=== PATIENT | female | born 1955 | race Caucasian/White ===

== ENCOUNTER 2016-11-02 02:23 | Inpatient (IN) | payer OTHER ==
[2016-11-02] VITALS (9 sets, daily range): BP systolic 95–142; BP diastolic 45–90
[~2016-11-02] VITALS: Ht 175.3 cm; Wt 47.6 kg
[2016-11-02 03:04] LABS: MEAN CORPUSCULAR HEMOGLOBIN 30.2 PG (27.0-31.0); MEAN CORPUSCULAR HGB CONC 33.6 G/DL (32.0-36.0); MEAN CORPUSCULAR VOLUME 90 FL (80-99); MEAN PLATELET VOLUME 6.1 FL (6.5-10.1); PLATELET COUNT 448 K/UL (150-450); RED BLOOD COUNT 4.48 M/UL (4.20-5.40); RED CELL DISTRIBUTION WIDTH 11.5 % (11.6-14.8); WHITE BLOOD COUNT 20.2 K/UL (4.8-10.8)
[2016-11-02 03:07] LABS: TROPONIN I < 0.30 ng/mL (<=0.30)
[2016-11-02 03:11] LABS: ALANINE AMINOTRANSFERASE 16 U/L (3-33); ALBUMIN/GLOBULIN RATIO 0.9 (1.0-2.7); ANION GAP 15 (5-15); ASPARTATE AMINO TRANSFERASE 21 U/L (5-40); CALCIUM 8.3 mg/dL (8.6-10.2); CARBON DIOXIDE 26 mEQ/L (20-30); CHLORIDE 99 mEQ/L (98-107); CREATININE 0.5 mg/dL (0.5-0.9); GLOMERULAR FILTRATION RATE > 60 mL/min (>60); HEMOLYSIS 1; POTASSIUM 3.4 mEQ/L (3.4-4.9); SODIUM 140 mEQ/L (135-145); TOTAL PROTEIN 6.3 g/dL (6.6-8.7)
[2016-11-02 03:21] LABS: CKMB 2.1 ng/mL (< 3.8)
[2016-11-02] MEDS ORDERED: Unasyn 3gm Inj ONE (03:26)
[2016-11-02] MEDS ORDERED: Ampicillin/Sulbactam Sod 3 GM in NS 110 ML IVPB ONE (03:30)
--- NOTE | 2016-11-02 04:46 | Emergency Room Report ---
History of Present Illness General Chief Complaint: Dyspnea/Respdistress Source: Patient Present Illness HPI Patient is a 61-year-old female brought in by EMS after increased difficulty breathing. Patient had gradual onset of symptoms. Patient had prior history of interstitial lung disease. Patient had been having increased work of breathing. Patient reported having prior history of similar symptoms. Patient does not use oxygen at home. She reported having some nonproductive cough. She had recently been on steroids approximately one month ago had been using steroids for several weeks. Allergies: Coded Allergies: No Known Allergies (Unverified , 11/02/16) Patient History Past Medical History: see triage record, other - interstitial lung disease. Reviewed Nursing Documentation: PMH: Agreed, PSxH: Agreed Nursing Documentation-PMH Hx COPD: Yes - INTERSTITIAL LUNG DISEASE Review of Systems All Other Systems: negative except mentioned in HPI Physical Exam Vital Signs Date Time Temp Pulse Resp B/P Pulse Ox O2 Delivery O2 Flow Rate FiO2 11/02/16 02:29 98.4 129 18 137/61 80 Room Air 11/02/16 02:45 4.0 Sp02 EP Interpretation: reviewed, normal General Appearance: normal inspection, well appearing, no apparent distress, alert, GCS 15, thin, Chronically Ill Head: atraumatic ENT: normal ENT inspection, hearing grossly normal, normal voice Neck: normal inspection, full range of motion, supple, no bony tend Respiratory: normal inspection, lungs clear, normal breath sounds, no respiratory distress, no retraction, no wheezing Cardiovascular #1: regular rate, rhythm, no edema Gastrointestinal: normal inspection, normal bowel sounds, non tender, soft, no guarding, no hernia Genitourinary: no CVA tenderness Musculoskeletal: normal inspection, back normal, normal range of motion Neurologic: normal inspection, alert, oriented x3, responsive, hoof trimmer III-XII nml as tested, speech normal Psychiatric: normal inspection, judgement/insight normal, mood/affect normal Skin: normal inspection, normal color, no rash Medical Decision Making Diagnostic Impression: Primary Impression: Respiratory distress Additional Impressions: Hypoxia Interstitial lung disease Leukocytosis ER Course Patient presented for shortness of breath. Differential diagnosis included but was not limited to bronchitis, pneumonia, pulmonary embolism, pericarditis, asthma, foreign body.Because of complexity of patient's case laboratory testing and imaging studies were ordered. The left her testing was notable for elevated white blood count. EKG interpreted by me showed sinus tachycardia with a rate of [address] or T wave changes. Rhythm strip showed a normal sinus rhythm with a rate of 104 without PVCs or ectopy. Chest x-ray one view interpreted by me showed scarring to both lungs with possible superimposed infiltrate. The patient was given IV antibiotics empirically. Dr. Nixon Keith was contacted for inpatient management. The patient started on supplemental oxygen. Last Vital Signs Date Time Temp Pulse Resp B/P Pulse Ox O2 Delivery O2 Flow Rate FiO2 11/02/16 03:48 98.2 98 28 103/52 95 Nasal Cannula 4.0 Status: unchanged Disposition: ADMITTED INPATIENT Condition: Serious Referrals: [facility],REFERRING (PCP) Titi Dover Nov 02, 2016 04:46
[2016-11-02] MEDS ORDERED: NKM (05:58)
--- NOTE | 2016-11-02 08:36 | Diagnostic Imaging Report ---
Indications: Shortness of breath Technique: Portable AP chest Findings: Comparison: None Interstitial markings mildly increased throughout both lungs. Linear suture lines the lateral aspect of the right upper and lower lobes. Both costophrenic angles mildly blunted. Heart size within normal limits. Central pulmonary vasculature prominent. Peripheral pulmonary vasculature within normal limits. Bones and extra pulmonary soft tissues unremarkable. Both costophrenic angles are blunted. IMPRESSION: Evidence of previous right lung surgery Diffuse bilateral interstitial disease, nonspecific, acuity indeterminate. Suggestion of small bibasal pleural effusions versus thickening, nonspecific Central pulmonary artery enlargement suggests an element of pulmonary arterial hypertension.
[2016-11-02 08:41] LABS: BAND NEUTROPHILS % (MANUAL) 1 % (0-8); BASOPHILS % (MANUAL) 0 % (0-2); EOSINOPHILS % (MANUAL) 1 % (0-3); LYMPHOCYTES % (MANUAL) 3 % (20-45); NEUTROPHILS % (MANUAL) 88 % (45-75); PLATELET ESTIMATE ADEQUATE; PLATELET MORPHOLOGY NORMAL; TOTAL CELLS COUNTED 100
--- NOTE | 2016-11-02 09:28 | History and Physical Report ---
DATE OF ADMISSION: 11/02/2016 CHIEF COMPLAINT AND REASON FOR HOSPITALIZATION: The patient admitted for cough and shortness of breath. HISTORY OF PRESENT ILLNESS: The patient had about 18 month history of cough and shortness of breath and diagnostic interstitial lung disease. She had a VATS procedure at [facility], was hospitalized there in August. She was given a prednisone before, but this was weaned off. She initially had a response, but her physicians apparently did not want to keep her on prednisone. She was also given gabapentin and that was also discontinued. She states inhalers did not help her. She presented with hypoxemia, cough and weakness. PAST SURGICAL HISTORY: VATS procedure on the right lung. ALLERGIES: None known. HABITS: She is a nondrinker and nonsmoker. No use of illicit drugs. SOCIAL HISTORY: She is . She works caring for elderly patients. Infectious exposure, no history of TB or valley fever, or exposure to the above. SYSTEM REVIEW: HEENT: Head eyes, ears, nose, and throat, vision and hearing is good. ENDOCRINE: No known diabetes or thyroid disease. PULMONARY: No asthma or TB. As above interstitial lung disease. CARDIAC: No angina, [place], or palpitations. GASTROINTESTINAL: No GI bleeding or ulcers. GENITOURINARY: No dysuria, hematuria, or kidney stones. She is post menopausal. NEUROLOGIC: No CVA, syncope or seizures. She has had significant weight loss over the two last years. PHYSICAL EXAMINATION: GENERAL: The patient is alert lady, thin, in no acute distress. BMI is 15.5. VITAL SIGNS: Temperature 98.2 degrees, respirations 24, blood pressure 105/58, pulse oximetry is 97% on four liters. HEENT: Sclerae nonicteric. Ocular motions intact in all directions. Oral mucosa moist. NECK: No adenopathy or thyroid enlargement. LUNGS: Few crackles at the bases. No wheezing. HEART: Regular rhythm. No murmur. ABDOMEN: Soft. No organomegaly or masses. EXTREMITIES: No edema cyanosis or clubbing. Note that she had a pulse of 129 on arrival and a pulse oximetry of 80% on arrival to the emergency room. LABORATORY AND DIAGNOSTIC DATA: White count is 20.2 and hemoglobin is 13.5. Electrolytes, potassium is 3.4 and glucose 138. IMPRESSION: 1. Interstitial lung disease with worsening hypoxemia and cough. 2. Weight loss significant. 3. Leukocytosis. PLAN: The patient will be treated for pulmonary infection with antibiotics. We will get pulmonary consultation due to severe hypoxemia and a question of whether nonsteroids should be continued. We will watch her closely in view of his significant hypoxemia. Thank you. Nixon Keith M.D. DR: Luna JOB#: [id number] CC:
[2016-11-02] MEDS ORDERED: guaiFENesin 100mg/5ml Liq ud ORAL PRN (09:30)
[2016-11-02] MEDS ORDERED: Milk of Magnesia 30ml Ud ORAL PRN (09:30)
[2016-11-02] MEDS: Benzonatate 100mg Perles ORAL SCH ×3 (09:48→18:08)
[2016-11-02] MEDS: Heparin 5000 units/ml inj SUBQ SCH ×2 (09:50→22:10)
[2016-11-02] MEDS ORDERED: Azithromycin 250mg tab ORAL ONE (10:00)
[2016-11-02] MEDS ORDERED: Solu-MEDROL 125mg Inj IVP ONE (10:00)
[2016-11-02] MEDS: cefTRIAXone 1 GM in D5W 55 ML IVPB SCH (11:04)
--- NOTE | 2016-11-02 13:08 | Consultation ---
Consult Note Assessment/Plan This 61 yo female was treated for interstitial lung disease dx w VATS last yr. Better w steroids but she did not follow up and stopped rx and got worse. Below are path report and pulmonary consultants opinion. The differential diagnosis includes chronic hypersensitivity pneumonitis and aspiration; connective tissue disease-associated interstitial lung disease cannot be entirely excluded based on pathologic findings. Some sections also demonstrate lipoid material, raising the possibility of exogenous lipoid pneumonia constellation of history/exposure, serologies, imaging and preliminary path findings suggestive of chronic hypersensitivity pneumonitis, likely to pigeon antigen - resume prednisone 40mg PO and bactrim ppx, please provide six month supply while pt figures out insurance issues to arrange followup with us She has rales but no clubbing. Rec abx (high WBC may be due to infection) steroids, PPI Bactrim DC when her condition improves Needs close f/u. MICHEL BEYER Nov 02, 2016 13:08
[2016-11-02] MEDS: Bactrim DS (160mg/800mg) tab ORAL SCH ×2 (13:35→22:03)
[2016-11-02] MEDS: Solu-MEDROL 40mg Inj IVP SCH ×2 (13:36→22:03)
[2016-11-02] MEDS: NovoLOG Insulin Flexpen SUBQ SCH ×2 (16:32→22:09)
[2016-11-03] VITALS: BP 135/69
[2016-11-03 02:57] LABS: APPEARANCE,URINE CLEAR; KETONES,URINE NEGATIVE (NEGATIVE); LEUKOCYTE ESTERASE ,URINE 1+ (NEGATIVE); NITRITE,URINE NEGATIVE (NEGATIVE); PH,URINE 6 (4.5-8.0); PROTEIN,URINE 3+ (NEGATIVE); UROBILINOGEN,URINE NORMAL MG/DL (0.0-1.0)
[2016-11-03 03:13] LABS: RBC,URINE 0-2 /HPF (0 - 2)
[2016-11-03 03:14] LABS: BACTERIA,URINE FEW /HPF; SQUAMOUS EPITHELIAL CELL,UR FEW /LPF (NONE/OCC); WBC,URINE 0-2 /HPF (0 - 2)
[2016-11-03 04:00] VITALS: BP 123/68
[2016-11-03] MEDS: Solu-MEDROL 40mg Inj IVP SCH ×3 (06:09→21:33)
[2016-11-03] MEDS: NovoLOG Insulin Flexpen SUBQ SCH ×4 (06:59→21:36)
[2016-11-03 07:50] VITALS: BP 129/65
[2016-11-03 11:18] VITALS: BP 122/69
--- NOTE | 2016-11-03 11:24 | Pulmonology Progress Note ---
Assessment/Plan Assessment/Plan chronic hypersensitivity pneumonitis cont steroids check RA sat daily dc when improving disc w case managers needs f/u w PMD and pulm Subjective Constitutional: Denies: fever Respiratory: Reports: dry cough, shortness of breath Allergies: Coded Allergies: No Known Allergies (Unverified , 11/02/16) Objective Last 24 Hour Vital Signs Date Time Temp Pulse Resp B/P Pulse Ox O2 Delivery O2 Flow Rate FiO2 11/03/16 11:18 98.1 90 18 122/69 99 Room Air 11/03/16 07:50 96.3 87 18 129/65 92 Room Air 11/03/16 04:00 81 11/03/16 04:00 96.4 80 18 123/68 97 Nasal Cannula 4.0 11/03/16 00:00 97 11/03/16 00:00 97.7 95 18 135/69 97 Nasal Cannula 4.0 11/02/16 20:22 96.6 101 19 136/72 96 Nasal Cannula 4.0 11/02/16 20:00 93 11/02/16 16:04 95 11/02/16 15:55 98.1 103 19 120/67 95 Nasal Cannula 4.0 11/02/16 12:19 97 Intake and Output 11/02/16 11/03/16 19:00 07:00 Intake Total 830 ml 480 ml Balance 830 ml 480 ml Intake Oral 830 ml 480 ml # Voids 2 1 General Appearance: no acute distress Respiratory/Chest: crackles/rales Microbiology Date/Time Source Procedure Growth Status 11/02/16 02:41 Blood Blood Culture - Preliminary NO GROWTH AFTER 24 HOURS Resulted 11/02/16 02:33 Blood Blood Culture - Preliminary NO GROWTH AFTER 24 HOURS Resulted Laboratory Tests 11/03/16 02:30: Urine Color Yellow, Urine Appearance Clear, Urine pH 6, Urine Specific [place] 1.020, Urine Protein 3+H, Urine Glucose (UA) Negative, Urine Ketones Negative, Urine Occult Blood 1+H, Urine Nitrite Negative, Urine Bilirubin Negative, Urine Urobilinogen Normal, Urine Leukocyte Esterase 1+H, Urine RBC 0-2, Urine WBC 0-2 , Urine Squamous Epithelial Cells Few, Urine Bacteria Few Current Medications Medications (Trade) Dose Ordered Sig/Kelly Route PRN Reason Start Time Stop Time Status Last Admin Dose Admin Acetaminophen (Tylenol) 650 mg Q4H PRN ORAL Mild Pain/Temp > 100.5 11/02/16 09:30 12/02/16 09:29 Azithromycin 250 mg 250 mg DAILY ORAL 11/03/16 09:00 11/06/16 08:59 Benzonatate (Tessalon Perles) 200 mg THREE TIMES A DAY ORAL 11/02/16 10:00 12/02/16 09:59 11/02/16 18:08 Ceftriaxone Sodium/Dextrose (Rocephin/D5W) 55 ml @ 110 mls/hr Q24H IVPB 11/02/16 11:00 11/09/16 10:59 11/02/16 11:04 Dextrose (Dextrose 50%) STAT PRN IV Hypoglycemia 11/02/16 14:30 12/02/16 14:29 Guaifenesin (Robitussin) 100 mg Q4H PRN ORAL For Cough 11/02/16 09:30 12/02/16 09:29 Heparin Sodium (Porcine) (Heparin 5000 units/ml) 5,000 units EVERY 12 HOURS SUBQ 11/02/16 10:00 12/02/16 09:59 11/02/16 22:10 Insulin Aspart (NovoLOG) BEFORE MEALS AND HS SUBQ 11/02/16 16:30 12/02/16 16:29 11/03/16 06:59 Magnesium Hydroxide (Mom) 30 ml DAILYPRN PRN ORAL Constipation 11/02/16 09:30 12/02/16 09:29 Methylprednisolone Sodium Succinate (Solu-MEDROL) 40 mg EVERY 8 HOURS IVP 11/02/16 14:00 12/02/16 13:59 11/03/16 06:09 Pantoprazole (Protonix) 40 mg ACBREAKFAST ORAL 11/03/16 06:30 12/02/16 09:59 11/03/16 06:58 Trimethoprim/ Sulfamethoxazole (Bactrim-DS) 1 ea Q12HR ORAL 11/02/16 14:00 11/09/16 13:59 11/02/16 22:03 MICHEL BEYER Nov 03, 2016 11:24
[2016-11-03] MEDS: Bactrim DS (160mg/800mg) tab ORAL SCH ×2 (11:44→21:32)
[2016-11-03] MEDS: Benzonatate 100mg Perles ORAL SCH ×3 (11:44→18:20)
[2016-11-03] MEDS: Azithromycin 250mg tab ORAL SCH (11:44)
[2016-11-03] MEDS: cefTRIAXone 1 GM in D5W 55 ML IVPB SCH (11:45)
[2016-11-03] MEDS: Heparin 5000 units/ml inj SUBQ SCH ×2 (11:48→21:34)
[2016-11-03 16:00] VITALS: BP 129/61
--- NOTE | 2016-11-03 18:51 | Cardiology Report ---
APPROVED REPORT EKG Measurement Heart [id number] Sinus tachycardia Possible Left atrial enlargement Nonspecific ST abnormality Abnormal ECG
[2016-11-03 20:00] VITALS: BP 130/70
--- NOTE | 2016-11-03 21:55 | General Progress Note ---
Assessment/Plan Problem List: (1) Bronchitis ICD Codes: J40 - Bronchitis, not specified as acute or chronic SNOMED: 79690686 (2) Weight loss ICD Codes: R63.4 - Abnormal weight loss SNOMED: 01527444 (3) Respiratory distress ICD Codes: R06.00 - Dyspnea, unspecified SNOMED: 025896108 (4) Leukocytosis ICD Codes: D72.829 - Elevated white blood cell count, unspecified SNOMED: 625020539, 848603936 (5) Hypoxia ICD Codes: R09.02 - Hypoxemia SNOMED: 769671778, 84328361 (6) Interstitial lung disease ICD Codes: J84.9 - Interstitial pulmonary disease, unspecified SNOMED: 563214568, 55879494 Assessment/Plan continue steroids, monitor glucose, O2 sat, empiric atb Subjective Constitutional: Reports: weakness HEENT: Reports: no symptoms Cardiovascular: Reports: no symptoms Respiratory: Reports: SOB at rest, cough, shortness of breath Gastrointestinal/Abdominal: Reports: no symptoms Genitourinary: Reports: no symptoms Neurologic/Psychiatric: Reports: no symptoms Endocrine: Reports: no symptoms Hematologic/Lymphatic: Reports: no symptoms Allergies: Coded Allergies: No Known Allergies (Unverified , 11/02/16) Objective Last 24 Hour Vital Signs Date Time Temp Pulse Resp B/P Pulse Ox O2 Delivery O2 Flow Rate FiO2 11/03/16 20:00 97.5 85 20 130/70 97 Nasal Cannula 4.0 11/03/16 16:00 98.1 81 20 129/61 97 Nasal Cannula 4.0 11/03/16 12:00 95 11/03/16 11:18 98.1 90 18 122/69 99 Room Air 11/03/16 08:00 94 11/03/16 07:50 96.3 87 18 129/65 92 Room Air 11/03/16 04:00 81 11/03/16 04:00 96.4 80 18 123/68 97 Nasal Cannula 4.0 11/03/16 00:00 97 11/03/16 00:00 97.7 95 18 135/69 97 Nasal Cannula 4.0 Intake and Output 11/02/16 11/03/16 19:00 07:00 Intake Total 830 ml 480 ml Balance 830 ml 480 ml Intake Oral 830 ml 480 ml # Voids 2 1 Laboratory Tests 11/03/16 02:30: Urine Color Yellow, Urine Appearance Clear, Urine pH 6, Urine Specific [place] 1.020, Urine Protein 3+H, Urine Glucose (UA) Negative, Urine Ketones Negative, Urine Occult Blood 1+H, Urine Nitrite Negative, Urine Bilirubin Negative, Urine Urobilinogen Normal, Urine Leukocyte Esterase 1+H, Urine RBC 0-2, Urine WBC 0-2 , Urine Squamous Epithelial Cells Few, Urine Bacteria Few Height (Feet): 5 Height (Inches): 9.00 Weight (Pounds): 105 General Appearance: no apparent distress EENT: PERRL/EOMI Neck: non-tender, normal alignment Cardiovascular: normal rate Respiratory/Chest: rhonchi - bilaterally Abdomen: soft, no organomegaly Edema: no edema noted Arm (L), no edema noted Arm (R), no edema noted Leg (L), no edema noted Leg (R), no edema noted Pedal (L), no edema noted Pedal (R), no edema noted Generalized ZOHREH JIMENEZ Nov 03, 2016 21:55
[2016-11-04 00:10] VITALS: BP 141/76
[2016-11-04 04:14] VITALS: BP 139/70
[2016-11-04] MEDS: Solu-MEDROL 40mg Inj IVP SCH ×2 (06:10→13:42)
[2016-11-04] MEDS: NovoLOG Insulin Flexpen SUBQ SCH ×3 (06:15→17:34)
[2016-11-04 08:21] VITALS: BP 119/61
--- NOTE | 2016-11-04 09:26 | Pulmonology Progress Note ---
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 needs f/u w PMD and pulm will add HHN Subjective Interval Events: REmains dyspnic; not feeling any better Constitutional: Reports: no symptoms HEENT: Repors: no symptoms Respiratory: Reports: shortness of breath Cardiovascular: Reports: no symptoms Gastrointestinal/Abdominal: Reports: no symptoms Allergies: Coded Allergies: No Known Allergies (Unverified , 11/02/16) Objective Last 24 Hour Vital Signs Date Time Temp Pulse Resp B/P Pulse Ox O2 Delivery O2 Flow Rate FiO2 11/04/16 08:21 97.5 91 20 119/61 99 Nasal Cannula 4.0 11/04/16 04:14 98.2 80 18 139/70 94 Nasal Cannula 5.0 11/04/16 04:00 77 11/04/16 00:10 98.5 85 19 141/76 95 Nasal Cannula 5.0 11/04/16 00:00 84 11/03/16 20:00 92 11/03/16 20:00 97.5 85 20 130/70 97 Nasal Cannula 4.0 11/03/16 16:00 111 11/03/16 16:00 98.1 81 20 129/61 97 Nasal Cannula 4.0 11/03/16 12:00 95 11/03/16 11:18 98.1 90 18 122/69 99 Room Air Intake and Output 11/03/16 11/04/16 19:00 07:00 Intake Total 600 ml 300 ml Balance 600 ml 300 ml Intake Oral 490 ml 300 ml IV Total 110 ml # Voids 1 1 # Bowel Movements 1 Respiratory/Chest: decreased breath sounds, crackles/rales Cardiovascular: normal peripheral pulses, normal rate Microbiology Date/Time Source Procedure Growth Status 11/02/16 02:41 Blood Blood Culture - Preliminary NO GROWTH AFTER 48 HOURS Resulted 11/02/16 02:33 Blood Blood Culture - Preliminary NO GROWTH AFTER 48 HOURS Resulted Current Medications Medications (Trade) Dose Ordered Sig/Kelly Route PRN Reason Start Time Stop Time Status Last Admin Dose Admin Acetaminophen (Tylenol) 650 mg Q4H PRN ORAL Mild Pain/Temp > 100.5 11/02/16 09:30 12/02/16 09:29 Azithromycin 250 mg 250 mg DAILY ORAL 11/03/16 09:00 11/06/16 08:59 11/03/16 11:44 Benzonatate (Tessalon Perles) 200 mg THREE TIMES A DAY ORAL 11/02/16 10:00 12/02/16 09:59 11/03/16 18:20 Ceftriaxone Sodium/Dextrose (Rocephin/D5W) 55 ml @ 110 mls/hr Q24H IVPB 11/02/16 11:00 11/09/16 10:59 11/03/16 11:45 Dextrose (Dextrose 50%) STAT PRN IV Hypoglycemia 11/02/16 14:30 12/02/16 14:29 Guaifenesin (Robitussin) 100 mg Q4H PRN ORAL For Cough 11/02/16 09:30 12/02/16 09:29 Heparin Sodium (Porcine) (Heparin 5000 units/ml) 5,000 units EVERY 12 HOURS SUBQ 11/02/16 10:00 12/02/16 09:59 11/03/16 21:34 Insulin Aspart (NovoLOG) BEFORE MEALS AND HS SUBQ 11/02/16 16:30 12/02/16 16:29 11/04/16 06:15 Magnesium Hydroxide (Mom) 30 ml DAILYPRN PRN ORAL Constipation 11/02/16 09:30 12/02/16 09:29 Methylprednisolone Sodium Succinate (Solu-MEDROL) 40 mg EVERY 8 HOURS IVP 11/02/16 14:00 12/02/16 13:59 11/04/16 06:10 Pantoprazole (Protonix) 40 mg ACBREAKFAST ORAL 11/03/16 06:30 12/02/16 09:59 11/04/16 06:10 Trimethoprim/ Sulfamethoxazole (Bactrim-DS) 1 ea Q12HR ORAL 11/02/16 14:00 11/09/16 13:59 11/03/16 21:32 Ayden Linda MD Nov 04, 2016 09:26
[2016-11-04] MEDS: Benzonatate 100mg Perles ORAL SCH ×3 (10:57→17:33)
[2016-11-04] MEDS: Bactrim DS (160mg/800mg) tab ORAL SCH (10:57)
[2016-11-04] MEDS: Heparin 5000 units/ml inj SUBQ SCH (11:00)
[2016-11-04 12:00] VITALS: BP 139/69
[2016-11-04] MEDS ORDERED: Albuterol ud Inhalation HHN SCH (13:00)
[2016-11-04] MEDS ORDERED: Ipratropium 0.02% Inh Soln 2.5ml UD HHN SCH (13:00)
[2016-11-04] MEDS: Azithromycin 250mg tab ORAL SCH (13:41)
[2016-11-04] MEDS: cefTRIAXone 1 GM in D5W 55 ML IVPB SCH (13:41)
[2016-11-04 16:00] VITALS: BP 132/62
--- NOTE | 2016-11-04 19:08 | Discharge Instructions ---
Discharge Instructions For Congestive Heart Failure Reminder Report to your physician any weight gain of 5 pounds or more in one week. ZOHREH JIMENEZ Nov 04, 2016 19:08
[2016-11-04] MEDS ORDERED: NS 275ml ONE ×2 (19:49)
[2016-11-04] MEDS ORDERED: Tubing IV Secondary IV ONE ×2 (19:49)
--- NOTE | 2016-11-05 03:58 | Discharge Summary ---
DATE OF ADMISSION: 11/02/2016 DATE OF DISCHARGE: 11/04/2016 PERTINENT HISTORY: The patient is a 61-year-old lady admitted with shortness of breath and cough. She was seen at [facility] last years and had a VATS with biopsy of the lung showing chronic hypersensitivity pneumonitis and aspiration possible pneumonia. She does have chronic hypersensitivity pneumonitis. The patient subsequently finished her steroids and did not refill. She subsequently presented to the hospital with shortness of breath and hypoxemia. PERTINENT PHYSICAL FINDINGS: GENERAL: The patient is alert and oriented. HEENT: Negative. LUNGS: Few crackles at the bases. No wheezing. HEART: Regular rhythm. ABDOMEN: Soft without organomegaly. EXTREMITIES: No edema. COURSE IN THE HOSPITAL: The patient presented with tachycardia, hypoxemia, and possible SIRS with a white count of 20.2. She was started on steroids , nebulizer treatment, and empiric antibiotics. With the above treatment, hypoxemia improved. Her saturation was 91 to 92% on room air. She had no respiratory distress. She feels better and she was discharged home in improved condition. FINAL DIAGNOSES: 1. Interstitial lung disease likely hypersensitivity pneumonitis with worsening hypoxemia and cough. 2. History of significant weight loss. 3. Leukocytosis. DISCHARGE DISPOSITION: She is discharged home on a regular diet. Prednisone 40 mg daily. Zantac 300 mg at bedtime and Bactrim DS one b.i.d. FOLLOWUP: Follow up with her primary care physician. Nixon Keith M.D. DR: Ana JOB#: [id number] CC:
== END 2016-11-04 19:50 | disposition home or self-care (01) | DRG 139 ==
LOC: EDBD 02:23 → EMR 02:31 → 2E 03:15 → EDBEDREQ 04:09 → 2E 07:21
DX: J18.9 Pneumonia, unspecified organism (principal); J84.9 Interstitial pulmonary disease, unspecified; R63.4 Abnormal weight loss; R09.02 Hypoxemia
CPT/HCPCS: 36415; 71010; 80053; 81003; 82550; 82553; 82962; 83605; 84484; 85007; 85025; 87040; 93005; J1815